=== PATIENT | female | born 2000 | race African-American/Black ===

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

== ENCOUNTER 2025-02-11 02:48 | Emergency (ER) | payer OTHER ==
[~2025-02-11] VITALS: Ht 162.6 cm; Wt 83.0 kg
[2025-02-11 03:48] VITALS: PULSE 97; RESP 18; O2SAT 98
[2025-02-11] MEDS: IPRATROPIUM/ALBUTEROL 0.5-3(2.5)MG/3ML NEB HHN ONE (03:48)
[2025-02-11] MEDS: PREDNISONE 20MG TABLET PO ONE (03:48)
[2025-02-11] MEDS ORDERED: ALBU90AE INH (04:49)
[2025-02-11] MEDS ORDERED: PULM50 NEB (04:49)
[2025-02-11] MEDS ORDERED: P50 MT (04:49)
[2025-02-11 05:00] VITALS: BP 105/57; PULSE 57; RESP 13; O2SAT 98
== END 2025-02-11 05:30 | disposition home or self-care (01) ==
LOC: ER 02:48
DX: J45.901 Unspecified asthma with (acute) exacerbation (principal); Z79.51 Long term (current) use of inhaled steroids; Z79.52 Long term (current) use of systemic steroids; Z79.899 Other long term (current) drug therapy; Z88.0 Allergy status to penicillin; Z91.010 Allergy to peanuts
CPT/HCPCS: 94640; 98960; 99283; J7512; Z7610 ×3; 94003; 94070; 94664